=== PATIENT | female | born 1980 | race Caucasian/White ===

== ENCOUNTER 2024-09-25 15:18 | Inpatient (IN) | payer OTHER ==
[2024-09-25 16:43] VITALS: BMI 38.4
[2024-09-25] MEDS ORDERED: DICYCLOMINE HCL 10 MG CAPSULE PO PRN (17:09)
[2024-09-25] MEDS ORDERED: guaiFENesin 600 MG TABLET.ER (FP) PO PRN (17:09)
[2024-09-25] MEDS ORDERED: NALOXONE (NARCAN) HCL 4 MG/0.1 ML SPRAY NS PRN (17:09)
[2024-09-25] MEDS ORDERED: IBUPROFEN 400 MG TABLET (FP) PO PRN (17:09)
[2024-09-25] MEDS ORDERED: ACETAMINOPHEN 325 MG TABLET (FP) PO PRN (17:09)
[2024-09-25] MEDS ORDERED: POLYETHYLENE GLYCOL (HEALTHYLAX) 3350 17 GM PACKET PO PRN (17:09)
[2024-09-25] MEDS ORDERED: BISMUTH SUBSALICYLATE 524 MG/30 ML PO PRN (17:09)
[2024-09-25] MEDS ORDERED: ONDANSETRON *ODT* 4 MG TABLET SL PRN (17:09)
[2024-09-25] MEDS ORDERED: MAGNESIUM HYDROX 2400MG/30ML ORAL SUSPENSION 30 ML CUP PO PRN (17:09)
[2024-09-25] MEDS ORDERED: BENZOCAINE/MENTHOL (CHLORASEPTIC ) LOZENGE MM PRN (17:09)
[2024-09-25] MEDS ORDERED: BENZONATATE 200 MG CAPSULE PO PRN (17:09)
[2024-09-25] MEDS ORDERED: MAG HYDROX/AL HYDROX/SIMETH 30 ML UNIT-DOSE CUP PO PRN (17:09)
[2024-09-25] MEDS ORDERED: hydrOXYzine PAMOATE 25 MG CAPSULE (FP) PO ONE (19:10)
[2024-09-25] MEDS ORDERED: LOPERAMIDE HCL 2 MG CAPSULE ONE (19:11)
[2024-09-25] MEDS ORDERED: METOPROLOL TARTRATE 25 MG TABLET (FP) ONE (19:25)
[2024-09-25] MEDS: NICOTINE POLACRILEX 2 MG LOZENGE BC SCH (19:26)
[2024-09-25] MEDS: hydrOXYzine PAMOATE 25 MG CAPSULE (FP) PO PRN (19:27)
[2024-09-25] MEDS: LOPERAMIDE HCL 2 MG CAPSULE PO PRN (19:27)
[2024-09-25] MEDS: METOPROLOL TARTRATE 25 MG TABLET (FP) PO ONE (19:28)
[2024-09-25] MEDS: IBUPROFEN 600 MG TABLET (FP) PO PRN (21:22)
[2024-09-25] MEDS: MELATONIN 5 MG TABLETS PO SCH (21:22)
[2024-09-25] MEDS: THIAMINE 100 MG TABLET PO SCH (21:22)
[2024-09-25] MEDS: METHOCARBAMOL 500 MG TABLET PO PRN (21:23)
[2024-09-26 08:44] VITALS: BP 133/74; PULSE 68; RESP 18; TEMP 96.9
[2024-09-26] MEDS: PRENATAL VITAMINS W/ FOLIC ACID TABLET (FP) PO SCH (09:47)
[2024-09-26 10:42] LABS: HEMATOCRIT 43.7 % (34.1-44.9); HEMOGLOBIN 14.2 g/dL (11.2-15.7); MCHC 32.5 g/dl (32.2-35.5); MEAN CELL VOLUME 89.2 fl (79.4-94.8); MEAN PLT VOLUME 12.2 fl (9.4-12.3); PLATELET COUNT 157 x10^3/uL (182-369); RDW 14.4 % (12.2-17.1)
[2024-09-26 10:46] LABS: CHLORIDE 106 mmol/L (98-107); POTASSIUM 4.1 mmol/L (3.5-5.1); SODIUM 140 mmol/L (136-145)
[2024-09-26 10:53] LABS: ALBUMIN 3.2 g/dl (3.4-5.0); ANION GAP 6 mmol/L (4-13); BLOOD UREA NITROGEN 11.3 mg/dL (7-18); CO2 28 mmol/L (21-32); GLUCOSE,RANDOM 97 mg/dL (74-106); SGOT/AST 35 U/L (15-37); SGPT/ALT 41 U/L (13-61)
[2024-09-26 10:54] LABS: CALCIUM 9.8 mg/dL (8.5-10.1)
[2024-09-26 10:55] LABS: BILIRUBIN,TOTAL 0.6 mg/dL (0.2-1); TOT PROT 6.5 g/dl (6.4-8.2)
[2024-09-26 10:56] LABS: ALK PHOS 97 U/L (45-117); CREATININE 0.8 mg/dL (0.55-1.3)
== END 2024-09-26 10:36 | disposition home or self-care (01) | DRG 775 ==
LOC: YASAS 15:18 → Y3N 19:30
PROVIDERS: ADMIT Allergy & Immunology; ATTEND Allergy & Immunology
PROC: HZ2ZZZZ Detoxification Services for Substance Abuse Treatment (ICD-10-PCS; principal; 2024-09-25)
DX: F10.20 Alcohol dependence, uncomplicated (principal); F12.10 Cannabis abuse, uncomplicated; F17.210 Nicotine dependence, cigarettes, uncomplicated; F31.9 Bipolar disorder, unspecified; F20.9 Schizophrenia, unspecified; I10 Essential (primary) hypertension
CPT/HCPCS: 36415; 80053; 80305; 80307; 81025; 85027; 86780; 86803; 93005; 93010